=== PATIENT | female | born 1950 | race Caucasian/White ===

== ENCOUNTER 2017-10-05 06:02 | Day surgery (SDC) | payer OTHER ==
[2017-10-05] MEDS ORDERED: ROCURONIUM 50 MG INJ (06:33)
[2017-10-05] MEDS ORDERED: PROPOFOL 20 ML (06:33)
[2017-10-05] MEDS ORDERED: LIDOCAINE 2% (SDV) 5 ML INJ (06:33)
[2017-10-05] MEDS ORDERED: FENTAnyl 50 MCG/ML VIAL (06:33)
[2017-10-05] MEDS ORDERED: NEOSTIGMINE 3 MG/3 ML SYRINGE (06:33)
[2017-10-05] MEDS ORDERED: GLYCOPYRROLATE 0.4 MG INJ (06:33)
[2017-10-05] MEDS ORDERED: MIDAZOLAM 1 MG/ML 2 ML INJ (06:33)
[2017-10-05] MEDS ORDERED: DEXAMETHASONE 4 MG/ML 1 ML INJ (06:34)
[2017-10-05] MEDS ORDERED: ONDANSETRON 4 MG INJ (06:34)
[2017-10-05 06:54] LABS: ADD MAN DIFF? NO
[2017-10-05 06:56] LABS: BASOPHIL # 0.1 10^3/ul (0.0-0.1); BASOPHILS % 0.9 % (0.0-2.0); EOSINOPHILS # 0.3 10^3/ul (0.0-0.5); EOSINOPHILS % 4.4 % (0.0-7.0); HEMATOCRIT 39.1 % (37.0-47.0); HEMOGLOBIN 13.1 g/dl (12.0-16.0); LYMPHOCYTES # 1.9 10^3/ul (0.8-2.9); LYMPHOCYTES % 33.3 % (15.0-51.0); MEAN CORPUSCULAR HEMOGLOBIN 31.8 pg (29.0-33.0); MEAN CORPUSCULAR HGB CONC 33.5 g/dl (32.0-37.0); MEAN CORPUSCULAR VOLUME 94.9 fl (82.0-101.0); MEAN PLATELET VOLUME 9.2 fl (7.4-10.4); MONOCYTE # 0.5 10^3/ul (0.3-0.9); MONOCYTES % 8.7 % (0.0-11.0); NEUTROPHILS % 52.4 % (39.0-77.0); PLATELET COUNT 205 10^3/UL (140-415); RED BLOOD COUNT 4.12 10^6/ul (4.20-5.40)
[2017-10-05 06:56] LABS: WHITE BLOOD COUNT 5.7 10^3/ul (4.8-10.8)
[2017-10-05] MEDS ORDERED: CIPRO 400 MG/200 ML D5W IVPB (07:00)
[2017-10-05] MEDS ORDERED: SUCCINYLCHOLINE CHLORIDE 100 MG/5 ML SYG IV (07:00)
[2017-10-05 07:18] LABS: ALANINE AMINOTRANSFERASE 27 IU/L (13-69); ALBUMIN 4.3 g/dl (3.3-4.9); ALBUMIN/GLOBULIN RATIO 1.43; ALKALINE PHOSPHATASE 113 IU/L (42-121); ANION GAP 17 (8-16); ASPARTATE AMINO TRANSFERASE 23 IU/L (15-46); BILIRUBIN,INDIRECT 0.3 mg/dl (0-1.1); BILIRUBIN,TOTAL 0.3 mg/dl (0.2-1.3); CARBON DIOXIDE 26 mmol/L (21-31); CHLORIDE 105 mmol/L (97-110); GLUCOSE 108 mg/dl (70-220); TOTAL PROTEIN 7.3 g/dl (6.1-8.1)
[2017-10-05 07:19] LABS: POTASSIUM 4.7 mmol/L (3.5-5.1); SODIUM 143 mmol/L (135-144)
[2017-10-05 07:22] LABS: BLOOD UREA NITROGEN 31 mg/dl (7-20); CALCIUM 9.1 mg/dl (8.4-10.2); CREATININE 1.13 mg/dl (0.44-1.00)
[2017-10-05 07:26] LABS: INR 0.89; PROTIME 12.1 Sec (11.9-14.9); PT RATIO 0.9
[2017-10-05 07:27] LABS: PARTIAL THROMBOPLASTIN TIME 33.7 Sec (25.0-35.0)
[2017-10-05] MEDS ORDERED: NALOXONE (0.4 MG/ML) INJ IV (07:30)
[2017-10-05] MEDS ORDERED: FUROSEMIDE 20 MG INJ (08:08)
[2017-10-05] MEDS: IOHEXOL 300MG/ML 30 ML BTL (08:11)
[2017-10-05] MEDS ORDERED: CIPROFLOXACIN 400MG/D5W 200 ML IVPB (08:30)
[2017-10-05] MEDS ORDERED: ALBUTEROL 0.083% (NEB) 2.5 MG/3 ML AMP (08:34)
== END 2017-10-05 10:35 | disposition home or self-care (01) ==
LOC: SDS 06:02
DX: R31.9 Hematuria, unspecified (principal); I10 Essential (primary) hypertension; E03.9 Hypothyroidism, unspecified; J44.9 Chronic obstructive pulmonary disease, unspecified
CPT/HCPCS: 52005; 71045; 74420; 80053; 85025; 85610; 85730; 88104; 88305